=== PATIENT | female | born 1930 | race Caucasian/White ===

== ENCOUNTER → 2017-12-23 | Outpatient (CLI) | payer MEDICARE, BC ==
[~2017-12-23] MED LIST: ALEN70SO4 PO; AMLO-1 PO; AMLO-96 PO; CALC-797 PO; CALC600T72 PO; CHOL100059 PO; CLO75 PO; CLOP75TA43 PO; DEN60I SUBQ; ERG400 PO; FISH OIL1 CAP PO; FOL1 PO; FURO-45 PO; GLY5 PO; INSU100I5 SQ; LISI-362 PO; LISI5TAB25 PO; METF-410 PO; METF500T4 PO; NEED-498 MC; NIA500 PO; OXYB5TAB86 PO; PNEI IJ; POTA75TA2 PO; SIMV-49 PO; SITA100T9 PO; SOL5 PO; SPIR25TA78 PO; TRILI135PT PO; UBID100C33 PO
== END ==
LOC: LAB 09:56
PROVIDERS: ATTEND Emergency Medicine
DX: E11.9 Type 2 diabetes mellitus without complications (principal)
CPT/HCPCS: 36415; 83036

== ENCOUNTER → 2018-01-09 | Outpatient (CLI) | payer MEDICARE, BC ==
[~2018-01-09] MED LIST changes: +ZOLE5INF IV
== END ==
LOC: LAB 12:54
PROVIDERS: ATTEND Emergency Medicine
DX: I10 Essential (primary) hypertension (principal); E11.9 Type 2 diabetes mellitus without complications
CPT/HCPCS: 36415; 82310; 82374; 82435; 82565; 82947; 84132; 84295; 84520

== ENCOUNTER → 2018-01-09 | Outpatient (CLI) | payer MEDICARE, BC ==
[~2018-01-09] MED LIST changes: +DEXTROSE 5%(*) 100 ML BAG 100 ML IVPB PRN; +LIDOCAINE/SOD BICARB 8.4% SYR ID PRN; +NS(*) 0.9% 100 ML BAG 100 ML IVPB PRN; +ZOLEDRONIC ACID 5 MG/100ML BTL 100 ML IVPB ONE
[2018-01-09 14:37] VITALS: BP 141/72
== END ==
LOC: SPU 08:09
PROVIDERS: ATTEND Emergency Medicine
DX: M85.80 Other specified disorders of bone density and structure, unspecified site (principal)
CPT/HCPCS: 96365; J3489; J7050

== ENCOUNTER → 2018-06-27 | Outpatient (CLI) | payer MEDICARE, BC ==
[~2018-06-27] MED LIST changes: +AMLO-111 PO; -AMLO-96 PO; -DEXTROSE 5%(*) 100 ML BAG 100 ML IVPB PRN; -LIDOCAINE/SOD BICARB 8.4% SYR ID PRN; -METF-410 PO; +METF-450 PO; -NS(*) 0.9% 100 ML BAG 100 ML IVPB PRN; -SPIR25TA78 PO; +SPIR25TA80 PO; -ZOLEDRONIC ACID 5 MG/100ML BTL 100 ML IVPB ONE
--- NOTE | 2018-06-27 14:42 | RADIOLOGY IMAGING REPORT ---
FACILITY: [facility] - [place] PATIENT NAME: SITA VALLES : [id number] MR: [id number] V: [id number] EXAM DATE: ORDERING PHYSICIAN: BEV PACHECO TECHNOLOGIST: Alysha Greco PROCEDURE:BILATERAL DIGITAL SCREENING MAMMOGRAM WITH CAD ASSISTED INTERPRETATION & 3D TOMOSYNTHESIS COMPARISON:Prior mammograms 05/28/16, 05/24/15, 05/20/14, 05/27/13, 05/19/13, 05/16/12. INDICATIONS:SCREENING FINDINGS: Small amount of fibroglandular tissue is seen throughout the breasts. Most of the parenchymal pattern has remained stable allowing for difference in mammographic technique & patient positioning. In the upper portion of the Left breast on the Left MLO view there is an indentation of the skin for which Spot compression view is recommended. DIAGNOSTIC CATEGORY 0--INCOMPLETE: NEED ADDITIONAL IMAGING EVALUATION. RECOMMENDATIONS: ADDITIONAL MAMMOGRAPHIC VIEWS REQUIRED: LEFT BREAST. IMPRESSION: BIRADS 0: Incomplete. Additional views of the Left breast recommended as described. Dictated by: Renetta Angelo M.D. on 06/27/2018 at 13:48 Transcribed by: TAMERA on 06/27/2018 at 13:58 Approved by: Renetta Angelo M.D. on 06/27/2018 at 14:41 [facility]
== END ==
LOC: MAMO 04:21
PROVIDERS: ATTEND Emergency Medicine
DX: R92.2 Inconclusive mammogram (principal)
CPT/HCPCS: 77063; 77067

== ENCOUNTER → 2018-07-09 | Outpatient (CLI) | payer MEDICARE, BC ==
--- NOTE | 2018-07-09 16:07 | RADIOLOGY IMAGING REPORT ---
FACILITY: [facility] [place] PATIENT NAME: SITA VALLES : [id number] MR: [id number] V: [id number] EXAM DATE: [id number] ORDERING PHYSICIAN: BEV PACHECO TECHNOLOGIST: Huyen Bello PROCEDURE:LEFT DIGITAL DIAGNOSTIC MAMMOGRAM WITH CAD ASSISTED INTERPRETATION & 3D TOMOSYNTHESIS COMPARISON:06/27/18. INDICATIONS:FURTHER EVAL FINDINGS: Scattered fibroglandular densities are present in the Left breast. Several benign appearing calcifications are scattered in the Left breast. No masses or skin indentation are identified. DIAGNOSTIC CATEGORY 1--NEGATIVE. RECOMMENDATIONS: ROUTINE MAMMOGRAM AND CLINICAL EVALUATION IN 1 YR. IMPRESSION: BIRADS 1: Negative. An imaging study negative for malignancy should not detour biopsy if indicated clinically. Dictated by: Jono Escobar M.D. on 07/09/2018 at 15:07 Transcribed by: TAMERA on 07/09/2018 at 15:15 Approved by: Jono Escobar M.D. on 07/09/2018 at 16:06 [facility]
== END ==
LOC: MAMO 01:43
PROVIDERS: ATTEND Emergency Medicine
DX: R92.8 Other abnormal and inconclusive findings on diagnostic imaging of breast (principal)
CPT/HCPCS: 77061; 77065

== ENCOUNTER → 2018-07-14 | Outpatient (CLI) | payer MEDICARE, BC ==
[~2018-07-14] MED LIST changes: +DIPH0.5D12 IM
[2018-07-14 11:42] LABS: PLATELET COUNT, AUTOMATED 266 K/uL (150-450)
[2018-07-14 12:06] LABS: LDL CHOLESTEROL 59 mg/dl
== END ==
LOC: LAB 11:21
PROVIDERS: ATTEND Emergency Medicine
DX: E11.9 Type 2 diabetes mellitus without complications (principal); G62.9 Polyneuropathy, unspecified; M85.80 Other specified disorders of bone density and structure, unspecified site
CPT/HCPCS: 36415; 82040; 82247; 82306; 82310; 82374; 82435; 82465; 82565; 82607; 82947; 83036; 83718; 84075; 84132; 84155; 84295; 84450; 84460; 84478; 84520; 85025

== ENCOUNTER 2019-01-12 11:00 | Outpatient (RCR) | payer MEDICARE, BC ==
[~2019-01-12 11:00] MED LIST changes: -DIPH0.5D12 IM; +DIPH0.5S2 IM
[2019-01-12 11:04] VITALS: BP 142/55
[2019-01-12] MEDS ORDERED: DEXTROSE 5%(*) 100 ML BAG 100 ML IVPB PRN (11:10)
[2019-01-12] MEDS ORDERED: NS(*) 0.9% 100 ML BAG 100 ML IVPB PRN (11:10)
[2019-01-12] MEDS ORDERED: LIDOCAINE/SOD BICARB 8.4% SYR ID PRN (11:10)
[2019-01-12] MEDS ORDERED: ZOLEDRONIC ACID 5 MG/100ML BTL 100 ML IVPB ONE (11:30)
== END 2019-02-13 13:29 | disposition home or self-care (01) ==
LOC: SPU 11:00
PROVIDERS: ATTEND Emergency Medicine
DX: M85.80 Other specified disorders of bone density and structure, unspecified site (principal)
CPT/HCPCS: 96365; J3489; J7050

== ENCOUNTER → 2019-01-12 | Outpatient (CLI) | payer MEDICARE, BC ==
[~2019-01-12] MED LIST changes: -AMLO-111 PO; +AMLO-125 PO
[2019-01-12 10:57] LABS: PLATELET COUNT, AUTOMATED 275 K/uL (150-450)
== END ==
LOC: LAB 10:39
PROVIDERS: ATTEND Emergency Medicine
DX: Z12.11 Encounter for screening for malignant neoplasm of colon (principal); K92.1 Melena; E11.9 Type 2 diabetes mellitus without complications
CPT/HCPCS: 36415; 82274; 83036; 85025